=== PATIENT | female | born 2000 | race African-American/Black ===

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

== ENCOUNTER 2024-03-12 23:06 | Emergency (ER) | payer OTHER ==
[2024-03-12 23:29] VITALS: BP 122/86; PULSE 60; RESP 19; TEMP 98.2; BMI 31.5
[2024-03-13] MEDS ORDERED: ACETAMINOPHEN 325 MG TABLET (FP) ONE (01:16)
[2024-03-13] MEDS ORDERED: LIDOCAINE 4% PATCH TP ONE (01:39)
[2024-03-13] MEDS: LIDOCAINE 5% TOPICAL PATCH TP ONE (01:42)
[2024-03-13] MEDS: ACETAMINOPHEN 500 MG TABLET (FP) PO ONE (01:43)
[2024-03-13] MEDS ORDERED: LIDOCAINE PATCH REMOVAL MC SCH (22:00)
== END 2024-03-13 01:43 | disposition left against medical advice (07) ==
LOC: JER 23:06
DX: M54.50 Low back pain, unspecified (principal)
CPT/HCPCS: 99283-25